=== PATIENT | female | born 1955 | race Caucasian/White ===

== ENCOUNTER 2018-11-12 09:17 | Emergency (ER) | payer MEDICARE, OTHER ==
[~2018-11-12] VITALS: Ht 157.5 cm; Wt 97.1 kg
[2018-11-12 09:35] LABS: BASOPHILS # (AUTO) 0.1 10^3/uL (0.0-0.1); BASOPHILS % (AUTO) 1 % (0-10); EOSINOPHILS # (AUTO) 0.2 10^3/uL (0.0-0.3); EOSINOPHILS % (AUTO) 1 % (0-10); HEMATOCRIT 44 % (35-52); HEMOGLOBIN 14.8 G/DL (11.5-16.0); LYMPHOCYTES # (AUTO) 2.5 X 10^3 (1.0-4.0); LYMPHOCYTES % (AUTO) 14 % (12-44); MEAN CORPUSCULAR HEMOGLOBIN 27 PG (25-34); MEAN CORPUSCULAR HGB CONC 34 G/DL (32-36); MEAN CORPUSCULAR VOLUME 79 FL (80-99); MEAN PLATELET VOLUME 9.1 FL (7.4-10.4); MONOCYTES # (AUTO) 1.9 X 10^3 (0.0-1.0); MONOCYTES % (AUTO) 11 % (0-12); NEUTROPHILS # (AUTO) 12.9 X 10^3 (1.8-7.8); NEUTROPHILS % (AUTO) 74 % (42-75); PLATELET COUNT 452 10^3/uL (130-400); RED CELL DISTRIBUTION WIDTH 15.1 % (10.0-14.5); WHITE BLOOD COUNT 17.5 10^3/uL (4.3-11.0)
[2018-11-12] MEDS ORDERED: CLON0.3T (09:35)
[2018-11-12] MEDS ORDERED: POTA-51 (09:35)
[2018-11-12] MEDS ORDERED: BUSP10TA95 (09:35)
[2018-11-12] MEDS ORDERED: AMLO10TA7 (09:35)
[2018-11-12] MEDS ORDERED: HYDR25TA4 (09:35)
[2018-11-12] MEDS ORDERED: METO-395 (09:35)
[2018-11-12] MEDS ORDERED: SERT100T8 (09:35)
[2018-11-12] MEDS ORDERED: PANT40TA3 (09:35)
[2018-11-12] MEDS ORDERED: MEDR2.5T6 (09:35)
[2018-11-12] MEDS ORDERED: DIAZ10TA3 (09:35)
[2018-11-12 09:48] LABS: INR 0.9 (0.8-1.4); PROTHROMBIN TIME PATIENT 12.9 SEC (12.2-14.7)
--- NOTE | 2018-11-12 09:52 | Diagnostic Imaging Report ---
INDICATION: Shortness of breath PA and lateral chest Heart size and pulmonary vascularity normal. Lungs are clear. There are no effusions or pneumothoraces. IMPRESSION: Negative chest. Dictated by: Dictated on workstation # [id number]
[2018-11-12 09:57] LABS: ALBUMIN 4.3 GM/DL (3.2-4.5); BILIRUBIN,TOTAL 0.5 MG/DL (0.1-1.0); CALCIUM 9.6 MG/DL (8.5-10.1); POTASSIUM 4.2 MMOL/L (3.6-5.0); TOTAL PROTEIN 8.4 GM/DL (6.4-8.2)
[2018-11-12 10:17] LABS: BAND NEUTROPHILS 5 %; BASOPHILS % (MANUAL) 0 %; EOSINOPHILS % (MANUAL) 2 %; LYMPHOCYTES % (MANUAL) 19 %; MONOCYTES % (MANUAL) 3 %; NEUTROPHILS % (MANUAL) 71 %
[2018-11-12 10:18] LABS: MICROCYTOSIS SLIGHT
[2018-11-12] MEDS ORDERED: NS IV 1000 ML 1,000 ML IV ONE (10:29)
[2018-11-12] MEDS ORDERED: methylPREDNISolone 125 MG (Solu-MEDROL) VIAL IVP ONE (10:30)
[2018-11-12] MEDS ORDERED: RT-ALBUTEROL/IPRATROPIUM 3 ML (DUONEB) VIAL INH ONE (10:30)
[2018-11-12 10:44] LABS: BILIRUBIN,URINE NEGATIVE (NEGATIVE); CLARITY,URINE SLIGHTLY CLOUDY; COLOR,URINE YELLOW; GLUCOSE, URINE (UA) NEGATIVE (NEGATIVE); KETONES,URINE NEGATIVE (NEGATIVE); LEUKOCYTE ESTERASE ,URINE 3+ (NEGATIVE); NITRITE,URINE NEGATIVE (NEGATIVE); PH,URINE 7 (5-9); PROTEIN,URINE 1+ (NEGATIVE); UROBILINOGEN,URINE NORMAL (NORMAL)
[2018-11-12] MEDS ORDERED: ACETAMINOPHEN 500 MG TAB (TYLENOL) PO ONE (10:45)
[2018-11-12 10:51] LABS: BACTERIA,URINE MODERATE /HPF; SQUAMOUS EPITHELIAL CELL,UR 25-50 /HPF; WBC,URINE 50-100 /HPF
[2018-11-12] MEDS ORDERED: PIPERACILLIN/TAZOBACTAM (BULK) 4.5 GM in NS (IVPB) 100 ML IV ONE (11:15)
[2018-11-12] MEDS ORDERED: IOHEXOL 350 MG/ML 100 ML (OMNIPAQUE 350) VIAL IV ONE (11:45)
[2018-11-12] MEDS ORDERED: NS 100 ML (IVPB) BAG IV ONE (11:45)
[2018-11-12] MEDS ORDERED: HOLD METFORMIN - RECEIVED CONTRAST 20 ML VIAL IV SCH (11:45)
[2018-11-12] MEDS ORDERED: CATHETER FLUSH 10 ML SYR IV PRN (11:45)
--- NOTE | 2018-11-12 12:23 | Diagnostic Imaging Report ---
PROCEDURE: CT angiography of the chest with contrast. TECHNIQUE: Multiple contiguous axial images were obtained through the chest after uneventful bolus administration of intravenous contrast. 3D reconstructed CTA MIP acquisitions were also performed. Auto Exposure Controls were utilized during the CT exam to meet ALARA standards for radiation dose reduction. INDICATION: Shortness of air and cough and back pain. FINDINGS: The thoracic aorta is normal caliber. No dissection is identified. Pulmonary arterial system is without evidence of thromboembolism. No definite filling defects are seen within the central or lobar branches. Segmental arteries are difficult to evaluate due to respiratory motion. No pericardial or pleural fluid is seen. 3 mm subpleural nodule right upper lobe is noted. There appears to be some minimal patchy infiltrate in the right lower lobe. Otherwise, lungs are clear. There are some mildly prominent lymph nodes in the right infrahilar region as well, indeterminate but could be reactive. Right paratracheal node measures 1.5 x 1.1 cm. Upper abdomen demonstrates significant low density throughout the liver consistent with hepatic steatosis. Liver also appears to be enlarged although not entirely included on this exam. IMPRESSION: 1. Somewhat limited study due to patient respiratory motion. No definite findings to suggest thoracic aortic dissection or pulmonary embolism are seen. There is some patchy infiltrate in the right lower lobe with some associated right hilar and right paratracheal lymphadenopathy, perhaps reactive. 2. Hepatic steatosis and hepatomegaly. Dictated by: Dictated on workstation # [id number]
[2018-11-12] MEDS ORDERED: ALPRAZolam 0.25 MG (XANAX) TAB PO ONE (13:00)
--- NOTE | 2018-11-12 13:19 | ED General ---
General Chief Complaint: Respiratory Problems Stated Complaint: SOA Nursing Triage Note: PT AMB TO RM 10 WITH COMPLAINT OF SOA. PT WAS SENT FROM [facility]. PT STATES SHE HAS HAD SOA SINCE MONDAY. Nursing Sepsis Screen: No Definite Risk Source of Information: Patient Exam Limitations: No Limitations History of Present Illness Date Seen by Provider: Nov 12, 2018 Time Seen by Provider: 09:30 Initial Comments This 63-year-old woman presents to the emergency room as directed by the [facility] for reasons of shortness of air, wheezing, fever, and hypoxia. Report was received from the clinic. At the clinic she had an oxygen saturation of 89 percent on room air, respiratory rate of 24, temperature of 101, and blood pressure 120/68. She hasn't been ill for 5-6 days and became very short of breath and wheezy in the night. She was gagging as well. Patient has history of smoking and quit about one month ago. There is questionable history of COPD. She is febrile on presentation. She has tight wheezing. DuoNeb was administered at the clinic. Allergies and Home Medications Allergies Coded Allergies: No Known Drug Allergies (Unverified , 11/12/18) Patient Home Medication List Home Medication List Reviewed: Yes Review of Systems Review of Systems Constitutional: see HPI EENTM: no symptoms reported Respiratory: see HPI Cardiovascular: no symptoms reported Gastrointestinal: no symptoms reported Genitourinary: no symptoms reported Musculoskeletal: no symptoms reported Skin: no symptoms reported Psychiatric/Neurological: No Symptoms Reported Hematologic/Lymphatic: No Symptoms Reported Past Pttyzyi-Ofmaxn-Csofim Hx Patient Social History Alcohol Use: Denies Use Recreational Drug Use: No Smoking Status: Former Smoker Type Used: Cigarettes Recent Foreign Travel: No Contact w/Someone Who Travel: No Recent Infectious Disease Expo: No Recent Hopitalizations: No Physical Abuse: No Sexual Abuse: No Mistreated: No Fear: No Immunizations Up To Date Tetanus Booster (TDap): Unknown Seasonal Allergies Seasonal Allergies: No Past Medical History Surgeries: Yes Abdominal, Section, Gallbladder Respiratory: Yes (tobaccoism) Cardiac: Yes Hypertension Neurological: No Genitourinary: No Gastrointestinal: No Musculoskeletal: No Endocrine: No HEENT: No Cancer: No Psychosocial: Yes Anxiety, Depression Integumentary: No Physical Exam-Suspected Sepsis Physical Exam Vital Signs Vital Signs - First Documented 11/12/18 11/12/18 09:19 09:42 Temp 102.8 Pulse 85 Resp 22 B/P (MAP) 156/101 (119) Pulse Ox 92 O2 Delivery Room Air O2 Flow Rate 2.00 Capillary Refill : Less Than 3 Seconds Blood Pressure Mean: 99 Height, Weight, BMI Height: 5'2.00" Weight: 214lbs. oz. 97.950390wz; BMI Method:Stated General Appearance: WD/WN, Mild Distress HEENT: PERRL/EOMI, Normal ENT Inspection, Pharynx Normal Neck: Normal Inspection Respiratory: No Accessory Muscle Use, No Respiratory Distress, Decreased Breath Sounds, Wheezing Cardiovascular: Regular Rate, Rhythm, No Edema, No Murmur Gastrointestinal: Non Tender, Soft Extremity: Normal Capillary Refill, Normal Inspection, No Pedal Edema Neurologic/Psychiatric: Alert, Oriented x3, No Motor/Sensory Deficits, Normal Mood/Affect, electronics tech II-XII Norm as Tested Skin: normal color, warm/dry Focused Exam Lactate Level 11/12/18 09:54: Lactic Acid Level 2.14*H 11/12/18 11:47: Lactic Acid Level 1.41 Lactic Acid Level Laboratory Tests Test 11/12/18 11:47 Lactic Acid Level 1.41 MMOL/L (0.50-2.00) Progress/Results/Core Measures Suspected Sepsis Recent Fever Within 48 Hours: Yes Infection Criteria Present: None New/Unexplained Altered Menta: No Sepsis Screen: No Definite Risk SIRS Temperature:102.8 Pulse: 78 Respiratory Rate: 29 Laboratory Tests 11/12/18 09:25: White Blood Count 17.5H Blood Pressure 127 /85 Mean: 99 11/12/18 09:54: Lactic Acid Level 2.14*H 11/12/18 11:47: Lactic Acid Level 1.41 Laboratory Tests 11/12/18 09:25: Creatinine 1.00, INR Comment 0.9, Platelet Count 452H, Total Bilirubin 0.5 Results/Orders Lab Results Laboratory Tests Test 11/12/18 09:25 11/12/18 09:54 11/12/18 10:36 11/12/18 11:47 Range/Units White Blood Count 17.5 H 4.3-11.0 10^3/uL Red Blood Count 5.56 4.35-5.85 10^6/uL Hemoglobin 14.8 11.5-16.0 G/DL Hematocrit 44 35-52 % Mean Corpuscular Volume 79 L 80-99 FL Mean Corpuscular Hemoglobin 27 25-34 PG Mean Corpuscular Hemoglobin Concent 34 32-36 G/DL Red Cell Distribution Width 15.1 H 10.0-14.5 % Platelet Count 452 H 130-400 10^3/uL Mean Platelet Volume 9.1 7.4-10.4 FL Neutrophils (%) (Auto) 74 42-75 % Lymphocytes (%) (Auto) 14 12-44 % Monocytes (%) (Auto) 11 0-12 % Eosinophils (%) (Auto) 1 0-10 % Basophils (%) (Auto) 1 0-10 % Neutrophils # (Auto) 12.9 H 1.8-7.8 X 10^3 Lymphocytes # (Auto) 2.5 1.0-4.0 X 10^3 Monocytes # (Auto) 1.9 H 0.0-1.0 X 10^3 Eosinophils # (Auto) 0.2 0.0-0.3 10^3/uL Basophils # (Auto) 0.1 0.0-0.1 10^3/uL Neutrophils % (Manual) 71 % Lymphocytes % (Manual) 19 % Monocytes % (Manual) 3 % Eosinophils % (Manual) 2 % Basophils % (Manual) 0 % Band Neutrophils 5 % Microcytosis SLIGHT Prothrombin Time 12.9 12.2-14.7 SEC INR Comment 0.9 0.8-1.4 Activated Partial Thromboplast Time 30 24-35 SEC D-Dimer 1.12 H 0.00-0.49 UG/ML Sodium Level 138 135-145 MMOL/L Potassium Level 4.2 3.6-5.0 MMOL/L Chloride Level 100 98-107 MMOL/L Carbon Dioxide Level 23 21-32 MMOL/L Anion Gap 15 H 5-14 MMOL/L Blood Urea Nitrogen 12 7-18 MG/DL Creatinine 1.00 0.60-1.30 MG/DL Estimat Glomerular Filtration Rate 56 BUN/Creatinine Ratio 12 Glucose Level 128 H 70-105 MG/DL Calcium Level 9.6 8.5-10.1 MG/DL Corrected Calcium 9.4 8.5-10.1 MG/DL Total Bilirubin 0.5 0.1-1.0 MG/DL Aspartate Amino Transf (AST/SGOT) 42 H 5-34 U/L Alanine Aminotransferase (ALT/SGPT) 40 0-55 U/L Alkaline Phosphatase 114 40-136 U/L Troponin I < 0.028 <0.028 NG/ML B-Type Natriuretic Peptide 55.9 <100.0 PG/ML Total Protein 8.4 H 6.4-8.2 GM/DL Albumin 4.3 3.2-4.5 GM/DL Lactic Acid Level 2.14 *H 1.41 0.50-2.00 MMOL/L Urine Color YELLOW Urine Clarity SLIGHTLY CLOUDY Urine pH 7 5-9 Urine Specific Ashby 1.010 L 1.016-1.022 Urine Protein 1+ H NEGATIVE Urine Glucose (UA) NEGATIVE NEGATIVE Urine Ketones NEGATIVE NEGATIVE Urine Nitrite NEGATIVE NEGATIVE Urine Bilirubin NEGATIVE NEGATIVE Urine Urobilinogen NORMAL NORMAL MG/DL Urine Leukocyte Esterase 3+ H NEGATIVE Urine RBC (Auto) 1+ H NEGATIVE Urine RBC 5-10 H /HPF Urine WBC 50-100 H /HPF Urine Squamous Epithelial Cells 25-50 H /HPF Urine Crystals NONE /LPF Urine Bacteria MODERATE H /HPF Urine Casts NONE /LPF Urine Mucus NEGATIVE /LPF Urine Culture Indicated CULTURE PENDING My Orders Orders - ZAY GONCALVES MD Cbc With Automated Diff (11/12/18:) Comprehensive Metabolic Panel (11/12/18:) Blood Culture (11/12/18:) Sputum Culture (11/12/18:) Urinalysis (11/12/18:) Urine Culture (11/12/18:) Protime With Inr (11/12/18:) Partial Thromboplastin Time (11/12/18:) Ed Iv/Invasive Line Start (11/12/18:) Ed Iv/Invasive Line Start (11/12/18:28) Vital Signs Adult Sepsis Patie Q15M (11/12/18:28) O2 (11/12/18:28) Remove Rings In Anticipation O (11/12/18:) Lactic Acid Analyzer (11/12/18:) Chest Pa/Lat (2 View) (11/12/18:28) Manual Differential (11/12/18 09:25) Albuterol/Ipra Inhalation Soln (Duoneb I (11/12/18 10:30) Svn Small Volume Nebulizer (11/12/18 10:28) Fibrin Degradation Products (11/12/18 10:28) Methylprednisolone Sod Succ (Solu-Medrol (11/12/18 10:30) Ns Iv 1000 Ml (Sodium Chloride 0.9%) (11/12/18 10:29) Acetaminophen Tablet (Tylenol Tablet) (11/12/18 10:45) Piperacillin/Tazobactam (Bulk) (Zosyn In (11/12/18 11:15) Ct Angio Chest W (11/12/18 11:15) Troponin I (11/12/18 11:26) Ekg Tracing (11/12/18 11:26) BNP (11/12/18 11:30) Iohexol Injection (Omnipaque 350 Mg/Ml 1 (11/12/18 11:45) Received Contrast (Hold Metformin- Contr (11/12/18 11:45) Sodium Chloride Flush (Catheter Flush Sy (11/12/18 11:45) Ns (Ivpb) (Sodium Chloride 0.9% Ivpb Bag (11/12/18 11:45) Alprazolam Tablet (Xanax Tablet) (11/12/18 13:00) Medications Given in ED Current Medications Medications Dose Ordered Sig/Nunu Route Start Time Stop Time Status Last Admin Dose Admin Acetaminophen 1,000 mg ONCE ONCE PO 11/12/18 10:45 11/12/18 10:46 DC 11/12/18 10:48 1,000 MG Albuterol/ Ipratropium 3 ml ONCE ONCE INH 11/12/18 10:30 11/12/18 10:31 DC 11/12/18 10:45 3 ML Alprazolam 0.25 mg ONCE ONCE PO 11/12/18 13:00 11/12/18 13:01 DC 11/12/18 12:56 0.25 MG Iohexol 100 ml ONCE ONCE IV 11/12/18 11:45 11/12/18 11:49 DC 11/12/18 12:16 100 ML Methylprednisolone Sodium Succinate 125 mg ONCE ONCE IVP 11/12/18 10:30 11/12/18 10:31 DC 11/12/18 10:48 125 MG Piperacillin Sod/ Tazobactam Sod 4.5 gm/Sodium Chloride 120 ml @ 240 mls/hr ONCE ONCE IV 11/12/18 11:15 11/12/18 11:44 DC 11/12/18 12:19 240 MLS/HR Sodium Chloride 100 ml ONCE ONCE IV 11/12/18 11:45 11/12/18 11:49 DC 11/12/18 12:16 100 ML Sodium Chloride 1,000 ml @ 0 mls/hr Q0M ONCE IV 11/12/18 10:29 11/12/18 10:30 DC 11/12/18 10:48 1,000 MLS/HR Vital Signs/I&O 11/12/18 11/12/18 11/12/18 11/12/18 09:19 09:42 10:22 10:47 Temp 102.8 102.8 Pulse 85 78 Resp 22 29 B/P (MAP) 156/101 (119) 127/85 Pulse Ox 92 94 91 93 O2 Delivery Room Air Nasal Cannula Nasal Cannula Nasal Cannula O2 Flow Rate 2.00 2.00 2.00 11/12/18 10:48 Temp 102.8 Capillary Refill : Less Than 3 Seconds Blood Pressure Mean: 99 Progress Note : Progress Note Septic workup was pursued. A repeat DuoNeb treatment was administered. Chest x-ray did not reveal evidence of pneumonia. Patient did have urinary tract infection. Initial antibiotic therapy was started with Zosyn after blood culture and lactic acid were drawn. Because pneumonia was no found on chest x- ray, another cause for hypoxia and dyspnea was suspected. D-dimer was added and was positive. CT angiogram revealed no evidence of pulmonary emboli but did reveal a right lower lobe pneumonia. Patient remained stable on nasal cannula at 3 L/m. Vital signs were otherwise stable as well. She received a liter of IV fluid. [facility] [address] [facility] is presently on admission diversion. For this reason admission was sought elsewhere. Transfer was accepted by Dr. Moeller at [facility] in [place]. Patient additionally stated she had had some chest discomfort over the past few days. Troponin and EKG were both unremarkable. Patient received Solu-Medrol 125 mg by IV route. Xanax 0.25 mg was given for treatment of anxiety. ECG Initial ECG Impression Date: Nov 12, 2018 Initial ECG Impression Time: 11:35 Initial ECG Rate: 93 Initial ECG Rhythm: Normal Sinus Initial ECG Intervals: Normal Initial ECG Impression: Normal Comment Normal sinus rhythm with no ST elevation or depression. No abnormal intervals or axis deviation. Diagnostic Imaging Diagonstic Imaging: Xray Plain Films/CT/US/NM/MRI: chest Comments Chest x-ray viewed by me and report reviewed. See report below: NAME: EMANUEL PINON [facility] REC#: [id number] PT STATUS: REG ER : 1955 PHYSICIAN: ZAY GONCALVES MD ADMIT DATE: 11/12/18/ER Signed Date of Exam: 11/12/18 CHEST PA/LAT (2 VIEW) INDICATION: Shortness of breath PA and lateral chest Heart size and pulmonary vascularity normal. Lungs are clear. There are no effusions or pneumothoraces. IMPRESSION: Negative chest. Dictated by: Dictated on workstation # [id number] Dict: 11/12/18 0947 Trans: 11/12/18 1000 Interpreted by: WALDO NGUYEN MD Electronically signed by: WALDO NGUYEN MD 11/12/18 1000 Diagonstic Imaging: CT Plain Films/CT/US/NM/MRI: chest Comments CT angiogram of the chest viewed by me and report reviewed. See report below: NAME: EMANUEL PINON [facility] REC#: [id number] PT STATUS: REG ER : 1955 PHYSICIAN: ZAY GONCALVES MD ADMIT DATE: 11/12/18/ER Draft Date of Exam:11/12/18 CT ANGIO CHEST W PROCEDURE: CT angiography of the chest with contrast. TECHNIQUE: Multiple contiguous axial images were obtained through the chest after uneventful bolus administration of intravenous contrast. 3D reconstructed CTA MIP acquisitions were also performed. Auto Exposure Controls were utilized during the CT exam to meet ALARA standards for radiation dose reduction. INDICATION: Shortness of air and cough and back pain. FINDINGS: The thoracic aorta is normal caliber. No dissection is identified. Pulmonary arterial system is without evidence of thromboembolism. No definite filling defects are seen within the central or lobar branches. Segmental arteries are difficult to evaluate due to respiratory motion. No pericardial or pleural fluid is seen. 3 mm subpleural nodule right upper lobe is noted. There appears to be some minimal patchy infiltrate in the right lower lobe. Otherwise, lungs are clear. There are some mildly prominent lymph nodes in the right infrahilar region as well, indeterminate but could be reactive. Right paratracheal node measures 1.5 x 1.1 cm. Upper abdomen demonstrates significant low density throughout the liver consistent with hepatic steatosis. Liver also appears to be enlarged although not entirely included on this exam. IMPRESSION: 1. Somewhat limited study due to patient respiratory motion. No definite findings to suggest thoracic aortic dissection or pulmonary embolism are seen. There is some patchy infiltrate in the right lower lobe with some associated right hilar and right paratracheal lymphadenopathy, perhaps reactive. 2. Hepatic steatosis and hepatomegaly. Dictated on workstation # [id number] Dict: 11/12/18 1210 Trans: 11/12/18 1223 [id number] Interpreted by: TOBY BARR MD Departure Impression Primary Impression: Severe sepsis Additional Impressions: Acute respiratory failure Qualified Codes: J96.01 - Acute respiratory failure with hypoxia Right lower lobe pneumonia Qualified Codes: J18.1 - Lobar pneumonia, unspecified organism COPD with exacerbation Urinary tract infection Qualified Codes: N39.0 - Urinary tract infection, site not specified Disposition: 02 XFER SHT-TRM HOSP (ERASED) Condition: Improved Transfer Time Spoke to Accepting Phy: 13:00 Transfer Progress Notes Transfer accepted by Dr. Moeller at [facility] in [place]. Transfer Time: 14:58 Transfer Facility: [facility] Method of Transfer: EMS Departure-Patient Inst. Referrals: NO,LOCAL PHYSICIAN (PCP) Primary Care Physician ZAY GONCALVES MD Nov 12, 2018 13:19
[2018-11-12 14:58] VITALS: BP 151/83
== END 2018-11-12 14:58 | disposition short-term general hospital (02) ==
LOC: EDUNIT# 09:17 → ER 09:19
DX: A41.9 Sepsis, unspecified organism (principal); R65.21 Severe sepsis with septic shock; J96.01 Acute respiratory failure with hypoxia; J18.1 Lobar pneumonia, unspecified organism; J44.0 Chronic obstructive pulmonary disease with (acute) lower respiratory infection; J44.1 Chronic obstructive pulmonary disease with (acute) exacerbation; N39.0 Urinary tract infection, site not specified; I10 Essential (primary) hypertension; F41.9 Anxiety disorder, unspecified; F32.9 Major depressive disorder, single episode, unspecified; Z87.891 Personal history of nicotine dependence
CPT/HCPCS: 36415; 71046; 71275; 80053; 81000; 83605; 83880; 84484; 85007; 85027; 85379; 85610; 85730; 87040; 87088; 93005; 94640

== ENCOUNTER → 2019-03-11 | Outpatient (CLI) | payer MEDICARE, MEDICAID ==
[~2019-03-11] MED LIST: AMLO10TA7; BUSP10TA95; CLON0.3T; DIAZ10TA3; HYDR25TA4; MEDR2.5T6; METO-395; PANT40TA3; POTA-51; SERT100T8
[2019-03-11 11:19] LABS: ABG BASE EXCESS 2.2 MMOL/L (-2.5-2.5); ABG OXYGEN SATURATION 93 % (94-100); ABG PCO2 38 MMHG (35-45); ABG PH 7.45 (7.37-7.43); ABG PO2 65 MMHG (79-93); ABG TCO2 27.2 MMOL/L (21.0-31.0)
[2019-03-11 11:20] LABS: ALLENS TEST YES-POS; INSPIRED O2 ROOM AIR; PATIENT TEMP 36.6; VENTILATOR NO
== END ==
LOC: PULM 09:57
PROVIDERS: ATTEND Nurse Practitioner Family
DX: J30.9 Allergic rhinitis, unspecified (principal); G47.50 Parasomnia, unspecified; G47.10 Hypersomnia, unspecified; Z72.0 Tobacco use
CPT/HCPCS: 36600; 82805

== ENCOUNTER → 2019-03-26 | Outpatient (CLI) | payer MEDICARE, MEDICAID ==
--- NOTE | 2019-03-26 15:04 | Diagnostic Imaging Report ---
INDICATION: Shortness of breath. TIME OF EXAM: 2:58 p.m. COMPARISON: Correlation is made with prior chest from 11/12/2018. FINDINGS: The heart size is normal. The pulmonary vascularity is unremarkable. The lungs are clear. No infiltrate, effusion or pneumothorax is detected. IMPRESSION: No acute cardiopulmonary process is detected. Dictated by: Dictated on workstation # [id number]
== END ==
LOC: RAD 14:26
PROVIDERS: ATTEND Family Medicine
DX: R06.02 Shortness of breath (principal)
CPT/HCPCS: 71045

== ENCOUNTER → 2019-05-28 | Outpatient (CLI) | payer MEDICAID, MEDICARE ==
[~2019-05-28] MED LIST changes: -METO-395; +MTP100TCR
--- NOTE | 2019-05-28 16:10 | Diagnostic Imaging Report ---
PROCEDURE: US Non-ob pelvis comp/trans. TECHNIQUE: Multiple realtime grayscale images were obtained of the pelvis in various projections endovaginally. Transabdominal imaging was also performed. INDICATION: Spotting. FINDINGS: The endometrium is 2 mm thick and homogenous. There are hypoechoic partly calcified myometrial masses separable from the endometrial stripe, believed to be small fibroids and likely largely degenerated given the degree of calcifications. These measure 1.3 and 1.0 cm maximally, most notable along the mid uterus posterior body. The ovaries cannot be visualized. There is no adnexal lesion. IMPRESSION: There is a 2 mm nonfocal endometrium and probable myometrial calcified fibroids without evidence for submucosal involvement. No adnexal lesion with nonvisualization of the ovaries. Dictated by: Dictated on workstation # [id number]
== END ==
LOC: RAD 13:34
PROVIDERS: ATTEND Family Medicine
DX: Z12.31 Encounter for screening mammogram for malignant neoplasm of breast (principal); N95.0 Postmenopausal bleeding; D25.9 Leiomyoma of uterus, unspecified
CPT/HCPCS: 76830; 76856; 77067

== ENCOUNTER → 2019-08-12 | Outpatient (CLI) | payer MEDICARE ==
--- NOTE | 2019-08-12 14:48 | Diagnostic Imaging Report ---
PROCEDURE: CT chest without contrast. TECHNIQUE: Multiple contiguous axial images were obtained through the chest without the use of intravenous contrast. Auto Exposure Controls were utilized during the CT exam to meet ALARA standards for radiation dose reduction. INDICATION: Bronchiectasis. COMPARISON: Comparison is made to prior examination of 11/12/2018. FINDINGS: There are no discrete pulmonary nodules, masses, or infiltrates. There is no evidence of discrete bronchiectasis or interstitial lung disease. There is no pleural fluid. There is a trace pericardial effusion. There are some coronary artery calcifications. There is no pneumothorax. There is no pathologically enlarged adenopathy in the chest. There is hepatomegaly. Gallbladder is surgically absent. IMPRESSION: Tiny pericardial effusion. Coronary artery calcifications. Thyromegaly. No other acute cardiopulmonary abnormality. Dictated by: Dictated on workstation # [id number]
== END ==
LOC: CARD 13:07
PROVIDERS: ATTEND Internal Medicine Critical Care Medicine
DX: J47.9 Bronchiectasis, uncomplicated (principal); I35.1 Nonrheumatic aortic (valve) insufficiency; E01.0 Iodine-deficiency related diffuse (endemic) goiter; I25.10 Atherosclerotic heart disease of native coronary artery without angina pectoris; I27.20 Pulmonary hypertension, unspecified; Z90.49 Acquired absence of other specified parts of digestive tract
CPT/HCPCS: 71250; 93306

== ENCOUNTER → 2020-05-12 | Outpatient (CLI) | payer MEDICARE ==
[~2020-05-12] MED LIST changes: +AMLO-251; -AMLO10TA7; -PANT40TA3; +PANT40TA52; +SERT-414; -SERT100T8
--- NOTE | 2020-05-12 13:05 | Diagnostic Imaging Report ---
INDICATION: Asymptomatic postmenopausal female. COMPARISON: None. FINDINGS: AP Spine L2-L4: [BMD (g/cm2): 1.019] [T-Score: -1.5] [Z-Score: -0.7] LT Hip Neck: [BMD (g/cm2): 0.686] [T-Score: -2.5] [Z-Score: -1.5] LT Hip Total: [BMD (g/cm2):0.857] [T-Score:-1.2] [Z-Score: -0.5] RT Hip Neck: [BMD (g/cm2):0.719] [T-Score:-2.3] [Z-Score:-1.3] RT Hip Total: [BMD (g/cm2):0.831] [T-score:-1.4] [Z-Score:-0.7] *Indicates significant change from prior examination based on 95% confidence level. World Health Organization criteria for BMD interpretation classify patients as Normal (T-score at or above -1.0), Osteopenic (T-score between -1.0 and -2.5) or Osteoporotic (T-score at or below -2.5). LIMITATIONS AND MODIFICATION: None. FRACTURE RISK (FRAX SCORE): The ten year probability of (%): Major Osteoporotic Fracture: [13.0] Hip Fracture: [2.8] IMPRESSION: 1. Osteoporosis. 2. Baseline examination. 3. See below National Osteoporosis Foundation guidelines on when to potentially initiate pharmacologic therapy. Based on the National Osteoporosis Foundation Guidelines, pharmacologic treatment should be initiated in any of the following, unless clinical conditions suggest otherwise: * Any patient with prior fragility fracture of the hip or vertebrae. A spine fracture indicates 5X risk for subsequent spine fracture and 2X risk for subsequent hip fracture. * Osteoporosis (T-score <-2.5). * Postmenopausal women and men age 50 and older with low bone mass/osteopenia (T-score between -1.0 and -2.5) by DXA and 10-year major osteoporotic fracture greater than 20% or a 10-year probability of hip fracture greater than 3%. These fracture risks are supplied above in the FRAX score, if applicable. * Clinician judgement and/or patient preferences may indicate treatment for people with 10-year fracture probabilities above or below these levels. Dictated by: Dictated on workstation # [id number]
== END ==
LOC: RAD 12:30
PROVIDERS: ATTEND Pediatrics
DX: M81.0 Age-related osteoporosis without current pathological fracture (principal)
CPT/HCPCS: 77080

== ENCOUNTER → 2020-06-22 | Outpatient (CLI) | payer MEDICARE ==
--- NOTE | 2020-06-23 10:37 | Diagnostic Imaging Report ---
EXAMINATION: Bilateral screening mammogram with CAD. INDICATION: Screening. COMPARISON: This study was compared to the prior exams of 05/28/2019, 03/03/2017, and 01/28/2016. PERSONAL HISTORY: At this time, there are no current complaints. FINDINGS: The fibroglandular tissue in both breasts is heterogeneously dense. This does limit the sensitivity of this exam. Overall, there does not appear to have been any significant change when compared to the prior study. No primary or secondary sign of malignancy is noted. IMPRESSION: There is no radiographic evidence for malignancy. ACR BI-RADS Category 1: Negative. Result letter will be mailed to the patient. Note: At least 10% of breast cancer is not imaged by mammography. Dictated by: Dictated on workstation # [id number]
== END ==
LOC: RAD 09:25
PROVIDERS: ATTEND Pediatrics
DX: Z12.31 Encounter for screening mammogram for malignant neoplasm of breast (principal)
CPT/HCPCS: 77063; 77067

== ENCOUNTER 2020-08-21 06:10 | Outpatient (CLI) | payer MEDICARE ==
[~2020-08-21] VITALS: Ht 157.5 cm; Wt 95.5 kg
[~2020-08-21 06:10] MED LIST changes: -AMLO-251; +AMLO-251 PO; -CLON0.3T; +CLON0.3T PO; -HYDR25TA4; +HYDR25TA4 PO; -MEDR2.5T6; +MEDR2.5T6 PO; -MTP100TCR; +MTP100TCR PO; -PANT40TA52; +PANT40TA52 PO; -POTA-51; +POTA-51 PO; -SERT-414; +SERT-414 PO
[2020-08-26] MEDS ORDERED: ESTR0.5T PO (11:23)
[2020-08-26] MEDS ORDERED: LEVO50CA4 PO (11:23)
[2020-08-26] MEDS ORDERED: ATOR40TA70 PO (11:23)
[2020-08-26] MEDS ORDERED: RT-ALBUINH IH (11:23)
[2020-08-26] MEDS ORDERED: MAGN500C15 PO (11:23)
[2020-08-26] MEDS ORDERED: DIAZ5TAB49 PO (11:23)
[2020-08-26] MEDS ORDERED: FLUT1BLS3 IH (11:23)
== END 2020-08-26 11:25 | disposition home or self-care (01) ==
LOC: PREOP 06:10
PROVIDERS: ATTEND Specialist
DX: Z01.818 Encounter for other preprocedural examination (principal)

== ENCOUNTER 2020-08-28 09:40 | Day surgery (SDC) | payer MEDICARE ==
[~2020-08-28] VITALS: Ht 157.5 cm; Wt 95.5 kg
[~2020-08-28 09:40] MED LIST changes: +ATOR40TA70 PO; +DIAZ5TAB49 PO; +ESTR0.5T PO; +FLUT1BLS3 IH; +LEVO50CA4 PO; +MAGN500C15 PO; +MIDAZOLAM 2 MG/2 ML (VERSED) VIAL ONE; +RT-ALBUINH IH
[2020-08-28 10:00] VITALS: BP 149/95
[2020-08-28] MEDS ORDERED: LIDOCAINE PF 1% 2 ML VIAL IR PRN (10:00)
[2020-08-28] MEDS ORDERED: POVIDONE (BETADINE) OPHTH SOLN 5% 30 ML OP ONE (10:00)
[2020-08-28] MEDS ORDERED: MOXIFLOXACIN OPHTH SOLN 5 MG/ML 0.3 ML SYRINGE OP ONE (10:00)
[2020-08-28] MEDS ORDERED: TIMOLOL MALEATE 0.5% 5 ML (TIMOPTIC) BTL OU PRN (10:00)
[2020-08-28] MEDS: TETRACAINE 0.5% OPHTH SOLN 4 ML BTL (SINGLE DOSE ONLY) OU PRN ×4 (10:08→10:27)
[2020-08-28] MEDS: TROPICAMIDE 1% OPH SOLN (MYDRIACYL) 15 ML BTL OP SCH ×3 (10:16→10:27)
[2020-08-28] MEDS: PHENYLEPHRINE 10% OPHTH (NEO-SYN) 5 ML BTL OU SCH ×3 (10:16→10:27)
--- NOTE | 2020-08-28 10:35 | Ophthalmologist Pre-Op Note ---
Pre-Operative Progress Note H&P Reviewed The H&P was reviewed, patient examined and no changes noted. Date H&P Reviewed: Aug 28, 2020 Time H&P Reviewed: 10:34 Pre-Op Dx Cataract, Right Eye BARRETT ROMERO MD Aug 28, 2020 10:35
[2020-08-28] MEDS ORDERED: acetaZOLAMIDE ER 500 MG CAP (DIAMOX SEQUELS) PO ONE (11:00)
--- NOTE | 2020-08-28 11:02 | Ophthalmology Operative Report ---
Cataract, Miotic Pupil PREOPERATIVE DIAGNOSIS: 1. Cataract Right Eye 2. Miotic Pupil POSTOPERATIVE DIAGNOSIS: 1. Cataract Right Eye 2. Miotic Pupil PROCEDURE: 1. Cataract removal and placement of posterior chamber implant, right eye 2. Pupillary expansion with malyugin ring SURGEON: Drake Romero ANESTHESIA: Topical with sedation COMPLICATIONS: None ESTIMATED BLOOD LOSS: Minimal DESCRIPTION OF PROCEDURE: After proper informed consent was obtained, the patient, a 65 female, was taken to the Operating Room and the right eye was anesthetized with Tetracaine. The eye was then prepped and draped in the usual manner. A wire lid speculum was placed. A paracentesis was made at the left hand position. Preservative free lidocaine was injected into anterior chamber followed by viscoelastic. A clear corneal incision was made in the temporal position. The malyugin ring was injected into the anterior chamber and the pupil was dilated. A capsulorrhexis was preformed and the central nuclear and cortical material were removed. The posterior capsule was polished and Castillo 22.0 AU00T0 IOL was placed into the capsular bag. The malyugin ring was removed. The residual viscoelastic was aspirated and the balanced saline solution was injected into the anterior chamber. Moxifloxacin was injected into the anterior chamber. The wound was checked and found to be water tight. The patient tolerated the procedure well without complications. DRAKE ROMERO MD Aug 28, 2020 11:02
[2020-08-28 11:10] VITALS: BP 158/97
--- NOTE | 2020-08-28 13:57 | Anesthesia-General Post-Op ---
MAC Patient Condition Mental Status/LOC: Same as Preop Cardiovascular: Satisfactory Nausea/Vomiting: Absent Respiratory: Satisfactory Pain: Controlled Complications: Absent Post Op Complications Complications None Follow Up Care/Instructions Patient Instructions None needed. Anesthesiology Discharge Order Discharge Order Patient is doing well, no complaints, stable vital signs, no apparent adverse anesthesia problems. No complications reported per nursing. DEEP ANDERS CRNA Aug 28, 2020 13:57
== END 2020-08-28 11:10 | disposition home or self-care (01) ==
LOC: SDC 09:40
PROVIDERS: ATTEND Specialist
DX: H25.11 Age-related nuclear cataract, right eye (principal); H57.03 Miosis; I10 Essential (primary) hypertension; J44.9 Chronic obstructive pulmonary disease, unspecified; G47.33 Obstructive sleep apnea (adult) (pediatric); K21.9 Gastro-esophageal reflux disease without esophagitis; F41.9 Anxiety disorder, unspecified; F32.9 Major depressive disorder, single episode, unspecified; E78.00 Pure hypercholesterolemia, unspecified; Z79.899 Other long term (current) drug therapy; Z79.51 Long term (current) use of inhaled steroids

== ENCOUNTER 2020-09-11 10:08 | Day surgery (SDC) | payer MEDICARE ==
[~2020-09-11] VITALS: Ht 157.5 cm; Wt 95.5 kg
[~2020-09-11 10:08] MED LIST changes: -MIDAZOLAM 2 MG/2 ML (VERSED) VIAL ONE
[2020-09-11 10:22] VITALS: BP 159/95
[2020-09-11] MEDS: TETRACAINE 0.5% OPHTH SOLN 4 ML BTL (SINGLE DOSE ONLY) OU PRN ×4 (10:24→10:47)
[2020-09-11] MEDS ORDERED: MOXIFLOXACIN OPHTH SOLN 5 MG/ML 0.3 ML SYRINGE OP ONE (10:30)
[2020-09-11] MEDS ORDERED: POVIDONE (BETADINE) OPHTH SOLN 5% 30 ML OP ONE (10:30)
[2020-09-11] MEDS ORDERED: LIDOCAINE PF 1% 2 ML VIAL IR PRN (10:30)
[2020-09-11] MEDS ORDERED: TIMOLOL MALEATE 0.5% 5 ML (TIMOPTIC) BTL OU PRN (10:30)
[2020-09-11] MEDS: TROPICAMIDE 1% OPH SOLN (MYDRIACYL) 15 ML BTL OP SCH ×3 (10:35→10:47)
[2020-09-11] MEDS: PHENYLEPHRINE 10% OPHTH (NEO-SYN) 5 ML BTL OU SCH ×3 (10:35→10:47)
[2020-09-11] MEDS ORDERED: MIDAZOLAM 2 MG/2 ML (VERSED) VIAL ONE (10:39)
--- NOTE | 2020-09-11 11:11 | Ophthalmologist Pre-Op Note ---
Pre-Operative Progress Note H&P Reviewed The H&P was reviewed, patient examined and no changes noted. Date H&P Reviewed: Sep 11, 2020 Time H&P Reviewed: 11:10 Pre-Op Dx Cataract, Left Eye BARRETT ROMERO MD Sep 11, 2020 11:11
[2020-09-11] MEDS ORDERED: acetaZOLAMIDE ER 500 MG CAP (DIAMOX SEQUELS) PO ONE (11:30)
--- NOTE | 2020-09-11 11:38 | Ophthalmology Operative Report ---
Cataract removal/placement IOL PREOPERATIVE DIAGNOSIS: Cataract Left Eye POSTOPERATIVE DIAGNOSIS: Cataract Left Eye PROCEDURE: Cataract removal and placement of posterior chamber implant, left eye SURGEON: Drake Romero ANESTHESIA: Topical with sedation COMPLICATIONS: None ESTIMATED BLOOD LOSS: Minimal DESCRIPTION OF PROCEDURE: After proper informed consent was obtained, the patient, a 65 female, was taken to the Operating Room and the left eye was anesthetized with tetracaine. The left eye was then prepped and draped in the usual manner. A wire lid speculum was placed. A paracentesis was made at the left hand position. Preservative free lidocaine was injected into the anterior chamber followed by viscoelastic. A clear corneal incision was made in the temporal position. A capsulorrhexis was preformed and the central nuclear and cortical material were removed. The posterior capsule was polished and an Castillo 22.0 [id number] was placed into the capsular bag. The residual viscoelastic was aspirated and balanced saline solution was injected into the anterior chamber. Moxifloxacin was injected into the anterior chamber. The wound was checked and found to be water tight. The patient tolerated the procedure well without complications. DRAKE ROMERO MD Sep 11, 2020 11:38
[2020-09-11 11:48] VITALS: BP 193/96
--- NOTE | 2020-09-11 16:01 | Anesthesia-General Post-Op ---
MAC Patient Condition Mental Status/LOC: Same as Preop Cardiovascular: Satisfactory Nausea/Vomiting: Absent Respiratory: Satisfactory Pain: Controlled Complications: Absent Post Op Complications Complications None Follow Up Care/Instructions Patient Instructions None needed. Anesthesiology Discharge Order Discharge Order Patient was seen after the procedure and she was doing well, no complaints, stable vital signs, no apparent adverse anesthesia problems. AMARA GONZÁLES 18, 2021 16:01
== END 2020-09-11 11:47 | disposition home or self-care (01) ==
LOC: SDC 10:08
PROVIDERS: ATTEND Specialist
DX: H25.12 Age-related nuclear cataract, left eye (principal); I10 Essential (primary) hypertension; E78.5 Hyperlipidemia, unspecified; G47.33 Obstructive sleep apnea (adult) (pediatric); K21.9 Gastro-esophageal reflux disease without esophagitis; K59.00 Constipation, unspecified; E78.00 Pure hypercholesterolemia, unspecified; F32.9 Major depressive disorder, single episode, unspecified; F41.9 Anxiety disorder, unspecified; Z87.891 Personal history of nicotine dependence; Z99.89 Dependence on other enabling machines and devices; Z83.3 Family history of diabetes mellitus

== ENCOUNTER → 2021-08-20 | Outpatient (CLI) | payer MEDICARE ==
[~2021-08-20] MED LIST changes: +AMOX875T2 PO; +LIDO20SO23 MM; +NAPR500T8 PO
--- NOTE | 2021-08-20 12:50 | Diagnostic Imaging Report ---
INDICATION: Routine screening. Comparison is made with prior mammogram 06/22/2020 and 05/28/2019. 2-D and 3-D bilateral screening mammography was performed with CAD. Both breasts are heterogeneously dense, limiting the sensitivity of mammography. There are benign calcifications throughout both breasts. The overall parenchymal pattern is stable. No dominant mass or malignant-appearing microcalcifications are seen. Axillae are unremarkable. IMPRESSION: No mammographic features suspicious for malignancy are identified. ACR BI-RADS Category 2: Benign findings. Result letter will be mailed to the patient. Note: At least 10% of breast cancer is not imaged by mammography. BI-RADS Category 2 Dictated by: Dictated on workstation # [id number]
== END ==
LOC: RAD 09:30
PROVIDERS: ATTEND Pediatrics
DX: Z12.31 Encounter for screening mammogram for malignant neoplasm of breast (principal)
CPT/HCPCS: 77063; 77067

== ENCOUNTER → 2022-01-20 | Outpatient (CLI) | payer MEDICARE ==
[~2022-01-20] MED LIST changes: +RT-ALBUTEROL SULF 2.5 MG/3 ML PRE-MIX VIAL INH ONE
== END ==
LOC: RT 07:30
PROVIDERS: ATTEND Internal Medicine Critical Care Medicine
DX: J44.1 Chronic obstructive pulmonary disease with (acute) exacerbation (principal); G47.33 Obstructive sleep apnea (adult) (pediatric)
CPT/HCPCS: 94060; 94621; 94726; 94729

== ENCOUNTER → 2022-05-17 | Outpatient (CLI) | payer MEDICARE ==
[~2022-05-17] MED LIST changes: +ALBU8.5H6 IH; -RT-ALBUINH IH; -RT-ALBUTEROL SULF 2.5 MG/3 ML PRE-MIX VIAL INH ONE
--- NOTE | 2022-05-17 15:28 | Diagnostic Imaging Report ---
INDICATION: M81.0, postmenopausal state. COMPARISON: 05/12/2020 FINDINGS: AP Spine L1-L4: [BMD (g/cm2): 1.230] [T-Score: 0.3] [Z-Score: 1.6] [BMD Previous: 1.019] [BMD % Change: 20.7]* LT Hip Neck: [BMD (g/cm2): 0.766] [T-Score: -2.0] [Z-Score: -0.5] LT Hip Total: [BMD (g/cm2):0.876] [T-Score:-1.0] [Z-Score: 0.1] [BMD Previous: 0.857] [BMD % Change: 2.2] RT Hip Neck: [BMD (g/cm2):0.766] [T-Score:-2.0] [Z-Score:-0.5] RT Hip Total: [BMD (g/cm2):0.851] [T-score:-1.2] [Z-Score:0.831-0.1] [BMD Previous:0.831] [BMD % Change:2.4] *Indicates significant change from prior examination based on 95% confidence level. World Health Organization criteria for BMD interpretation classify patients as Normal (T-score at or above -1.0), Osteopenic (T-score between -1.0 and -2.5) or Osteoporotic (T-score at or below -2.5). LIMITATIONS AND MODIFICATION: None. FRACTURE RISK (FRAX SCORE): The ten year probability of (%): Major Osteoporotic Fracture: [11.1] Hip Fracture: [1.9] IMPRESSION: 1. Osteopenia (Low bone mass). 2. Bone mineral density within the lumbar spine has significantly increased since the prior examination, though some of this apparent increase could be artifactual in nature secondary to degenerative hypertrophic changes. Bone mineral density within the bilateral hips has not significantly changed since the prior exam. 3. See below National Osteoporosis Foundation guidelines on when to potentially initiate pharmacologic therapy. Based on the National Osteoporosis Foundation Guidelines, pharmacologic treatment should be initiated in any of the following, unless clinical conditions suggest otherwise: * Any patient with prior fragility fracture of the hip or vertebrae. A spine fracture indicates 5X risk for subsequent spine fracture and 2X risk for subsequent hip fracture. * Osteoporosis (T-score <-2.5). * Postmenopausal women and men age 50 and older with low bone mass/osteopenia (T-score between -1.0 and -2.5) by DXA and 10-year major osteoporotic fracture greater than 20% or a 10-year probability of hip fracture greater than 3%. These fracture risks are supplied above in the FRAX score, if applicable. * Clinician judgement and/or patient preferences may indicate treatment for people with 10-year fracture probabilities above or below these levels. Dictated by: Dictated on workstation # [id number]
== END ==
LOC: RAD 13:00
PROVIDERS: ATTEND Pediatrics
DX: M85.88 Other specified disorders of bone density and structure, other site (principal); M81.0 Age-related osteoporosis without current pathological fracture; M89.38 Hypertrophy of bone, other site
CPT/HCPCS: 77080

== ENCOUNTER → 2022-06-16 | Outpatient (CLI) | payer MEDICARE ==
[~2022-06-16] MED LIST changes: +LIDO15SO6 MM; -LIDO20SO23 MM
--- NOTE | 2022-06-16 13:35 | Diagnostic Imaging Report ---
INDICATION: Bilateral leg pain Noninvasive study performed in the routine fashion. On the right side, ankle brachial index was 0.9 for posterior tibial artery and 1.01 for dorsalis pedis. Digital index was 0.95. On the left side, ankle brachial index was 1.08 for posterior tibial and 1.07 for dorsalis pedis. The digital index was decreased to 0.81. Waveforms appeared symmetric. IMPRESSION: Ankle-brachial indices were relatively unremarkable, although there was some decrease in the digital index on the left. Dictated by: Dictated on workstation # [id number]
== END ==
LOC: RAD 10:07
PROVIDERS: ATTEND Pediatrics
DX: L91.8 Other hypertrophic disorders of the skin (principal); M79.605 Pain in left leg; M79.604 Pain in right leg
CPT/HCPCS: 93922

== ENCOUNTER → 2022-10-25 | Outpatient (CLI) | payer MEDICARE ==
[~2022-10-25] MED LIST changes: +LIDO15SO3 MM; -LIDO15SO6 MM; +POTA-330 PO; -POTA-51 PO
--- NOTE | 2022-10-25 15:14 | Diagnostic Imaging Report ---
INDICATION: Routine screening. COMPARISON: 08/20/2021 and 06/22/2020. TECHNIQUE: 2D and 3D bilateral screening mammography was performed with CAD. FINDINGS: Both breasts are heterogeneously dense, limiting the sensitivity of mammography. There are benign calcifications scattered throughout both breasts. A benign nodule in the left breast is stable. No spiculated mass or malignant-appearing microcalcifications are seen. The axillae are unremarkable. IMPRESSION: No mammographic features suspicious for malignancy are identified. ACR BI-RADS Category 2: Benign findings. Result letter will be mailed to the patient. Note: At least 10% of breast cancer is not imaged by mammography. Dictated by: Dictated on workstation # [id number]
== END ==
LOC: RAD 07:54
DX: Z12.31 Encounter for screening mammogram for malignant neoplasm of breast (principal)
CPT/HCPCS: 77063; 77067